=== PATIENT | male | born 1980 | race Caucasian/White ===

== ENCOUNTER 2017-04-21 20:33 | Emergency (ER) | payer SELFPAY ==
[2017-04-21 21:00] LABS: BASOPHILS 0.4 % (0-2); EOSINOPHILS 3.4 % (0-7); HEMATOCRIT 46.7 % (42.0-54.0); HEMOGLOBIN 15.9 g/dL (13.5-17.5); IMMATURE GRANULOCYTES 0.3 % (0-5); LYMPHOCYTES 44.6 % (15-50); MCH 28.9 pg (26.0-34.0); MCV 84.9 fL (80.0-100.0); MEAN PLATELET VOLUME 8.7 fL (7.4-10.4); MONOCYTES 9.1 % (2-11); NEUTROPHILS 42.2 % (40-80); PLATELET COUNT 332 10x3/uL (130-400); RDW 14.2 % (11.5-14.5); WBC 10.7 10x3/uL (4.8-10.8)
[2017-04-21 21:17] LABS: ALBUMIN 4.1 g/dL (3.4-5.0); ALKALINE PHOSPHATASE 71 U/L (46-116); ALT (SGPT) 46 U/L (10-68); BILIRUBIN - TOTAL 0.43 mg/dL (0.2-1.3); CALC OSMOLALITY 277 mosm/kg (275-300); CALCIUM 9.5 mg/dL (8.5-10.1); CARBON DIOXIDE 26.8 mmol/L (21.0-32.0); CHLORIDE - SERUM 103 mmol/L (98-107); CREATININE - SERUM 1.2 mg/dL (0.6-1.3); GLUCOSE 106 mg/dL (74-106); POTASSIUM - SERUM 3.4 mmol/L (3.5-5.1); PROTEIN - SERUM 7.6 g/dL (6.4-8.2); SODIUM 140 mmol/L (136-145); UREA NITROGEN 11 mg/dL (7-18); eGFR NON AFRICAN AMERICAN 74 mL/min (90-120)
[2017-04-21 21:29] LABS: CKMB 0.8 U/L (0.0-3.6); CREATINE KINASE 178 UL (21-232); TROPONIN-I < 0.017 ng/mL (0.000-0.060)
== END 2017-04-21 22:22 | disposition home or self-care (01) ==
LOC: D.ER 20:33
PROVIDERS: Emergency Medicine
DX: I10 Essential (primary) hypertension (principal)

== ENCOUNTER 2017-12-17 21:42 | Emergency (ER) | payer SELFPAY | END 2017-12-17 21:51 | disposition left against medical advice (07) | LOC: D.ER 21:42 | DX: R51 Headache (principal) ==

== ENCOUNTER 2020-06-13 20:04 | Emergency (ER) | payer BC ==
[~2020-06-13] VITALS: Ht 180.3 cm; Wt 93.2 kg
[~2020-06-13 20:04] MED LIST: ZESTRIL10 MG PO
[2020-06-13 20:11] VITALS: Ht 180.3 cm; Wt 93.2 kg
[2020-06-13] MEDS ORDERED: LISINOPRIL10 MG PO (20:13)
[2020-06-13] MEDS ORDERED: CYCLOBENZAPRINE10 MG PO (21:12)
[2020-06-13 21:47] VITALS: BP 125/84
== END 2020-06-13 21:47 | disposition home or self-care (01) ==
LOC: D.ER 20:04
DX: R51.9 Headache, unspecified (principal); M25.512 Pain in left shoulder; V89.2XXA Person injured in unspecified motor-vehicle accident, traffic, initial encounter; Y93.9 Activity, unspecified; Y92.9 Unspecified place or not applicable; I10 Essential (primary) hypertension